=== PATIENT | male | born 1995 | race African-American/Black ===

== ENCOUNTER 2020-12-27 12:48 | Emergency (ER) | payer OTHER ==
[~2020-12-27] VITALS: Ht 167.6 cm; Wt 65.8 kg
[2020-12-27 14:35] VITALS: BP 136/91
== END 2020-12-27 14:52 | disposition home or self-care (01) ==
LOC: ER 12:48
PROVIDERS: Student in an Organized Health Care Education/Training Program
DX: J02.9 Acute pharyngitis, unspecified (principal); Z20.822 Contact with and (suspected) exposure to COVID-19; M79.10 Myalgia, unspecified site; R51.9 Headache, unspecified